=== PATIENT | male | born 1985 | race Caucasian/White ===

== ENCOUNTER 2021-08-18 09:15 | Inpatient (IN) | payer OTHER ==
--- NOTE | 2021-08-18 10:43 | ED ---
Psych HPI - General Chief Complaint: Psychiatric Symptoms Stated Complaint: Mental Health Evaluation Time Seen by Provider: 08/18/21 09:55 Source: patient, RN notes reviewed Mode of arrival: ambulatory Limitations: no limitations - History of Present Illness Initial Comments: This a 35-year-old male presents emergency Department chief complaint of needing psychiatric help. Patient states he has from [place] states that he does not have his psychiatric medications he states he's developed severe psychosis, suicidal ideation. States is very anxious, agitated he denies any homicidal ideation denies any current drug or alcohol abuse. Patient denies any physical complaints. - Related Data Home Medications Medication Instructions Recorded Confirmed No Known Home Medications 08/18/21 08/18/21 Allergies Allergy/AdvReac Type Severity Reaction Status Date / Time Beta-Blockers Allergy Anaphylaxis Verified 08/18/21 11:36 (Beta-Adrenergic Bloc MOST ANTIPSYCHOTICS AdvReac "STROKE" Uncoded 08/18/21 11:36 Review of Systems ROS Statement: Those systems with pertinent positive or pertinent negative responses have been documented in the HPI. ROS Other: All systems not noted in ROS Statement are negative. Past Medical History Past Medical History: No Reported History History of Any Multi-Drug Resistant Organisms: None Reported Past Surgical History: No Surgical Hx Reported Past Psychological History: Anxiety, Depression, PTSD Smoking Status: Current every day smoker Past Alcohol Use History: Daily Past Drug Use History: None Reported General Exam Limitations: no limitations General appearance: alert, in no apparent distress Head exam: Present: atraumatic, normocephalic, normal inspection Eye exam: Present: normal appearance, PERRL, EOMI. Absent: scleral icterus, conjunctival injection, periorbital swelling ENT exam: Present: normal exam, normal oropharynx, mucous membranes moist Neck exam: Present: normal inspection, full ROM. Absent: tenderness, meningismus, lymphadenopathy Respiratory exam: Present: normal lung sounds bilaterally. Absent: respiratory distress, wheezes, rales, rhonchi, stridor Cardiovascular Exam: Present: regular rate, normal rhythm, normal heart sounds. Absent: systolic murmur, diastolic murmur, rubs, gallop, clicks Neurological exam: Present: alert, oriented X3 Psychiatric exam: Present: anxious Skin exam: Present: warm, dry, intact, normal color. Absent: rash Course Vital Signs 08/18/21 09:48 Temperature 97.7 F Pulse Rate 91 Respiratory 18 Rate Blood Pressure 157/97 O2 Sat by Pulse 99 Oximetry Medical Decision Making - Medical Decision Making Patient will be admitted for psychiatric treatment. - Lab Data Lab Results 08/18/21 Range/Units 11:25 Urine Opiates Screen Not Detected (NotDetected) Ur Oxycodone Screen Not Detected (NotDetected) Urine Methadone Screen Not Detected (NotDetected) Ur Propoxyphene Screen Not Detected (NotDetected) Ur Barbiturates Screen Not Detected (NotDetected) U Tricyclic Antidepress Not Detected (NotDetected) Ur Phencyclidine Scrn Not Detected (NotDetected) Ur Amphetamines Screen Not Detected (NotDetected) U Methamphetamines Scrn Not Detected (NotDetected) U Benzodiazepines Scrn Detected H (NotDetected) Urine Cocaine Screen Not Detected (NotDetected) U Marijuana (THC) Screen Not Detected (NotDetected) Disposition Clinical Impression: Depression, Suicidal ideation Disposition: TRANSFER TO PSYCH HOSP/UNIT Condition: Stable Referrals: Nonstaff,Physician [Primary Care Provider] - 1-2 days
[2021-08-18 11:55] LABS: Amphetamine Screen,Urine Not Detected (NotDetected); Barbiturate Screen,Urine Not Detected (NotDetected); Benzodiazepines Screen,Urine Detected (NotDetected); Cocaine Screen,Urine Not Detected (NotDetected); Methadone Screen, Urine Not Detected (NotDetected); Opiate Screen,Urine Not Detected (NotDetected); Oxycodone Screen, Urine Not Detected (NotDetected); Phencyclidine Screen,Urine Not Detected (NotDetected); Tricyclic Antidepressant,Urine Not Detected (NotDetected); Urn Cannabinoid Scrn Not Detected (NotDetected)
[2021-08-18] MEDS ORDERED: LORazepam 1 MG TAB PO STA (13:17)
[2021-08-18] MEDS ORDERED: MAGNESIUM HYDROXIDE 2,400 MG/10 ML CUP PO PRN (17:17)
[2021-08-18] MEDS ORDERED: ACETAMINOPHEN TAB 325 MG TAB PO PRN (17:17)
[2021-08-18] MEDS ORDERED: MAG HYDROX/AL HYDROX/SIMETH 30 ML CUP PO PRN (17:17)
[2021-08-18] MEDS ORDERED: HALOPERIDOL LACTATE 5 MG/ML 1 ML VIAL IM PRN (17:19)
[2021-08-18] MEDS ORDERED: LORazepam 2 MG/ML INJ IM PRN (17:19)
[2021-08-18] MEDS ORDERED: haloperidoL 5 MG TAB PO PRN (17:19)
[2021-08-18] MEDS: LORazepam 1 MG TAB PO PRN (18:46)
[2021-08-18] MEDS ORDERED: traZODone HCL 50 MG TAB PO PRN (21:11)
--- NOTE | 2021-08-19 00:43 | P.PN ---
Progress Note - Text Progress Note Date: 08/19/21 patient sleeping and could not be evaluated at this time
[2021-08-19 07:47] LABS: ALT 38 U/L (4-49); AST 28 U/L (17-59); African American GFR (CKD) >90 (>60 ml/min/1.73 sqM); Albumin 3.5 g/dL (3.5-5.0); Alkaline Phosphatase 50 U/L (38-126); Anion Gap 6 mmol/L; Blood Urea Nitrogen 17 mg/dL (9-20); Calcium 9.3 mg/dL (8.4-10.2); Carbon Dioxide 27 mmol/L (22-30); Chloride 105 mmol/L (98-107); Glucose 96 mg/dL (74-99); Non-African American GFR(CKD) >90 (>60 ml/min/1.73 sqM); Sodium 138 mmol/L (137-145); Total Bilirubin 0.7 mg/dL (0.2-1.3); Total Protein 6.4 g/dL (6.3-8.2)
[2021-08-19 07:57] LABS: Basophils % (A) 1 %; Eosinophils # (A) 0.2 k/uL (0-0.7); Eosinophils % (A) 3 %; HCT 39.3 % (39.0-53.0); HGB 13.8 gm/dL (13.0-17.5); Lymphocytes # (A) 1.8 k/uL (1.0-4.8); Lymphocytes % (A) 36 %; MCH 34.8 pg (25.0-35.0); MCV 99.4 fL (80.0-100.0); Mean Platelet Volume 8.5; Monocytes # (A) 0.4 k/uL (0-1.0); Monocytes % (A) 7 %; Neutrophils # (A) 2.6 k/uL (1.3-7.7); Neutrophils % (A) 51 %; Platelet Count 233 k/uL (150-450); RBC 3.96 m/uL (4.30-5.90); RDW 13.2 % (11.5-15.5)
[2021-08-19] MEDS: LORazepam 1 MG TAB PO PRN ×3 (08:00→21:17)
[2021-08-19] MEDS: NICOTINE 14MG/24HR PATCH TRANSDERM SCH ×2 (08:36→15:14)
--- NOTE | 2021-08-19 11:59 | P.HP ---
Psychiatric H&P - . H&P Date: 08/19/21 History & Physical: Allergies Allergy/AdvReac Type Severity Reaction Status Date / Time Beta-Blockers Allergy Anaphylaxis Verified 08/18/21 11:36 (Beta-Adrenergic Bloc MOST ANTIPSYCHOTICS AdvReac "STROKE" Uncoded 08/18/21 11:36 Vital Signs Temp 97.7 F 08/18/21 18:09 Pulse 86 08/19/21 08:00 Resp 18 08/18/21 18:09 BP 131/77 08/19/21 08:00 Pulse Ox 99 08/18/21 18:09 Intake & Output 08/18/21 08/19/21 08/19/21 18:59 06:59 18:59 Weight 109.769 kg Laboratory Last Values WBC 5.0 k/uL (3.8-10.6) 08/19/21 06:43 RBC 3.96 m/uL (4.30-5.90) L 08/19/21 06:43 Hgb 13.8 gm/dL (13.0-17.5) 08/19/21 06:43 Hct 39.3 % (39.0-53.0) 08/19/21 06:43 MCV 99.4 fL (80.0-100.0) 08/19/21 06:43 MCH 34.8 pg (25.0-35.0) 08/19/21 06:43 MCHC 35.0 g/dL (31.0-37.0) 08/19/21 06:43 RDW 13.2 % (11.5-15.5) 08/19/21 06:43 Plt Count 233 k/uL (150-450) 08/19/21 06:43 MPV 8.5 08/19/21 06:43 Neutrophils % 51 % 08/19/21 06:43 Lymphocytes % 36 % 08/19/21 06:43 Monocytes % 7 % 08/19/21 06:43 Eosinophils % 3 % 08/19/21 06:43 Basophils % 1 % 08/19/21 06:43 Neutrophils # 2.6 k/uL (1.3-7.7) 08/19/21 06:43 Lymphocytes # 1.8 k/uL (1.0-4.8) 08/19/21 06:43 Monocytes # 0.4 k/uL (0-1.0) 08/19/21 06:43 Eosinophils # 0.2 k/uL (0-0.7) 08/19/21 06:43 Basophils # 0.0 k/uL (0-0.2) 08/19/21 06:43 Sodium 138 mmol/L (137-145) 08/19/21 06:43 Potassium 4.0 mmol/L (3.5-5.1) 08/19/21 06:43 Chloride 105 mmol/L (98-107) 08/19/21 06:43 Carbon Dioxide 27 mmol/L (22-30) 08/19/21 06:43 Anion Gap 6 mmol/L 08/19/21 06:43 BUN 17 mg/dL (9-20) 08/19/21 06:43 Creatinine 0.95 mg/dL (0.66-1.25) 08/19/21 06:43 Est GFR (CKD-EPI)AfAm >90 (>60 ml/min/1.73 sqM) 08/19/21 06:43 Est GFR (CKD-EPI)NonAf >90 (>60 ml/min/1.73 sqM) 08/19/21 06:43 Glucose 96 mg/dL (74-99) 08/19/21 06:43 Calcium 9.3 mg/dL (8.4-10.2) 08/19/21 06:43 Total Bilirubin 0.7 mg/dL (0.2-1.3) 08/19/21 06:43 AST 28 U/L (17-59) 08/19/21 06:43 ALT 38 U/L (4-49) 08/19/21 06:43 Alkaline Phosphatase 50 U/L (38-126) 08/19/21 06:43 Total Protein 6.4 g/dL (6.3-8.2) 08/19/21 06:43 Albumin 3.5 g/dL (3.5-5.0) 08/19/21 06:43 TSH 0.571 mIU/L (0.465-4.680) 08/19/21 06:43 Urine Opiates Screen Not Detected (NotDetected) 08/18/21 11:25 Ur Oxycodone Screen Not Detected (NotDetected) 08/18/21 11:25 Urine Methadone Screen Not Detected (NotDetected) 08/18/21 11:25 Ur Propoxyphene Screen Not Detected (NotDetected) 08/18/21 11:25 Ur Barbiturates Screen Not Detected (NotDetected) 08/18/21 11:25 U Tricyclic Antidepress Not Detected (NotDetected) 08/18/21 11:25 Ur Phencyclidine Scrn Not Detected (NotDetected) 08/18/21 11:25 Ur Amphetamines Screen Not Detected (NotDetected) 08/18/21 11:25 U Methamphetamines Scrn Not Detected (NotDetected) 08/18/21 11:25 U Benzodiazepines Scrn Detected (NotDetected) H 08/18/21 11:25 Urine Cocaine Screen Not Detected (NotDetected) 08/18/21 11:25 U Marijuana (THC) Screen Not Detected (NotDetected) 08/18/21 11:25 Coronavirus (PCR) Not Detected (Not Detectd) 08/18/21 12:58 08/19/21 11:52 IDENTIFYING DATA: Patient is a 35-year-old male coming from [place] who currently lives with his mother and has 1 adult and is currently . He is currently unemployed. HPI: Patient presented to the hospital yesterday with complaints of depression and anxiety and not being on medications. Patient's UDS is positive for benzodiazepines. Patient was admitted to the mental health floor for evaluation and treatment. Patient signed voluntary form. He claims that he came to [place] to live with his mother from [place]. He states that his medications got lost in his luggage on the plane and states that he has been off his medications for several months now. He states that about a month ago he was admitted to [facility] in [place] and was treated for depression and anxiety and discharged with prescriptions however states that he could not fill him due to not having [place] Medicaid active. He states that he would like to get back on his Cymbalta, Zyprexa trazodone and melatonin. He states that he has been dealing with anxiety depression and PTSD. He states that his sleep is fair however does have repeated nightmares and flashbacks. He claims that his appetite is fair. Patient denies any current suicidal or homicidal ideations intent or plan. At this time patient denies any auditory or visual hallucinations. Patient denies any flight of ideas racing thoughts and increased in goal directed behavior. Patient admits to using alcohol daily and states that he drinks excessively. He claims that he is having mild withdrawal symptoms including tremor at this time in his hands however does not have a history of DTs. PAST PSYCHIATRIC HISTORY: Patient states that he has a history of anxiety, PTSD and depression. Patient was previously on Cymbalta, Zyprexa, trazodone and melatonin patient was recently psychiatrically hospitalized a [facility] over a month ago. He states that he has been psychiatrically hospitalized several times in the past. Patient denies any psychiatric outpatient follow-up. He states that he overdosed on DayQuill 6 years ago during his divorce. PMH: DJD ALLERGIES: as per EMR CHEMICAL DEPENDENCY HISTORY: as per HPI FAMILY PSYCHIATRIC/SUBSTANCE USE HISTORY: States that his mother has depression and anxiety. SOCIAL HISTORY: Patient was born and raised in [place]. He states that he completed high school and attended 3 years of college. 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 He currently lives with his mother in a house has 1 adult and is currently unemployed. He is . He states that he went to assisted in the past for operating while intoxicated. MENTAL STATUS EXAM: General Appearance: Patient appears to be heavyset, stated age is alert, directable, and attempts to cooperate. Multiple tattoos, Patient appears to have poor hygiene and grooming. Behavior: Patient is seated without any agitated behavior. Speech: Patient's speech is fluent and nonpressured. Depue and monotone. Mood/Affect: Patient reports their mood is depressed and anxious, affect is congruent and constricted. Suicidality/Homicidality: Patient denies having any homicidal ideation intent or plan. Denies any suicidal ideations intent or plan Perceptions: Patient denies any visual hallucinations and denies any auditory hallucinations Though content/process: \\Depue, monotone. Poverty of content. Logical. Vague. Memory and concentration: AOX3, grossly intact for the purposes of this session. Can spell "WORLD" backwards Judgment and insight: poor STRENGTHS/WEAKNESSES: strength is that patient is resilient. Weakness is that patient has poor judgment and is impulsive INTELLECT: average IMPRESSIONS: Major depressive disorder, without psychotic features PTSD Alcohol use disorder, currently in withdrawal PLAN: -Patient is admitted under voluntary status to [facility] for stabilization of psychiatric symptoms and safety. Patient has signed adult voluntary form and medication consent and is placed in patient's chart. -Medications : Will start patient on Zyprexa 5 mg daily at bedtime for mood stabilization/insomnia, Cymbalta 30 mg daily for mood/anxiety/pain. Melatonin 5 mg daily at bedtime for sleep. Trazodone 50 mg daily at bedtime when necessary for insomnia. Started prazosin 1 mg daily at bedtime for nightmares. -Ativan and Haldol PRN for agitation/aggression -Started thiamine, MVM for etoh use -CIWA protocol with Ativan PRN for ETOH withdrawal -Patient was counselled on substance abuse and desired to cut back on use -Patient was informed of the risks, benefits and side effects of the medication and patient verbally consented to taking the medications. Patient signed med consent form and was placed in chart. -Internal Medicine consult to perform medical evaluation and physical. -NRT - nicotine patch -SW on board for discharge planning. Encourage patient to participate in groups to work on coping skills.
[2021-08-19] MEDS: MULTIVITAMINS, THERA 1 EACH TAB PO SCH (12:56)
[2021-08-19] MEDS: THIAMINE 100 MG TAB PO SCH (12:56)
[2021-08-19] MEDS: DULoxetine HCL 30 MG CAPSULE.DR PO SCH (12:56)
[2021-08-19] MEDS: FOLIC ACID 1 MG TAB PO SCH (12:56)
[2021-08-19 13:45] LABS: Chol/HDL Ratio 3.77; Cholesterol 177 mg/dL (0-200); LDL Cholesterol,Calculated 65.2 mg/dL (0.0-131.0)
[2021-08-19 14:40] LABS: Hemoglobin A1C 4.7 % (4.0-6.0)
[2021-08-19] MEDS ORDERED: flUPHENAZine 2.5 MG/ML (MDV) 10 ML VIAL IM PRN (14:48)
[2021-08-19] MEDS: OLANZapine 5 MG TAB PO SCH (20:38)
[2021-08-19] MEDS: PRAZOSIN 1 MG CAP PO SCH (20:38)
[2021-08-19] MEDS: MELATONIN 5 MG TABLET PO SCH (20:38)
[2021-08-20] MEDS: NICOTINE 14MG/24HR PATCH TRANSDERM SCH ×3 (08:00→16:37)
[2021-08-20] MEDS: MULTIVITAMINS, THERA 1 EACH TAB PO SCH (08:00)
[2021-08-20] MEDS: DULoxetine HCL 30 MG CAPSULE.DR PO SCH ×2 (08:00→20:39)
[2021-08-20] MEDS: THIAMINE 100 MG TAB PO SCH (08:00)
[2021-08-20] MEDS: FOLIC ACID 1 MG TAB PO SCH (08:00)
[2021-08-20] MEDS: LORazepam 1 MG TAB PO PRN ×3 (08:00→21:48)
--- NOTE | 2021-08-20 11:53 | P.PN ---
Progress Note - Text Progress Note Date: 08/20/21 Interval History: Patient was seen playing cards today and activities group and was directable and agreeable to speak with blurb writer in the office. Patient appears to be more appropriate with blurb writer and less irritable today. He states that his mood and anxiety began gradually improving. He states that he is worried about his anxiety when he leaves the hospital and was asking about other options. He is agreeable to have his Cymbalta increased to 30 mg twice a day. He claims that he was able to sleep fairly last night and did not have any nightmares. He states that he is most likely willing to go to a rehab however is waiting on an intake date from [facility] at this time. He states that he is going to groups and attempting to participate as best as he can. At this time patient denies any suicidal or homical ideations, intent or plan. Patient denies any auditory, visual hallucinations and denies any paranoia or delusions. Patient denies any side effects from the medications and has been compliant with meds. Mental Status Exam: General Appearance: Patient appears to be heavyset, stated age is alert, more directable, and attempts to cooperate. Multiple tattoos, Patient appears to have improving hygiene and grooming. Behavior: Patient is seated without any agitated behavior. More cooperative today Speech: Patient's speech is fluent and nonpressured. [place] Mood/Affect: Patient reports their mood is improving mildly, affect is congruent and constricted. Suicidality/Homicidality: Patient denies having any homicidal ideation intent or plan. Denies any suicidal ideations intent or plan Perceptions: Patient denies any visual hallucinations and denies any auditory hallucinations Though content/process: monotone. Poverty of content. Logical. Memory and concentration: AOX3, grossly intact for the purposes of this session. Judgment and insight: poor, improving mildly Assessment Major depressive disorder, without psychotic features PTSD Alcohol use disorder, currently in withdrawal Plan: -Patient continues to meet criteria for inpatient psychiatric admission for symptom stabilization and safety. Patient has signed adult voluntary form and medication consent and was placed in patient's chart. -Medications: Zyprexa 5 mg daily at bedtime for mood stabilization/insomnia, Cymbalta increased to 30 mg twice a day for mood/anxiety/pain. Melatonin 5 mg daily at bedtime for sleep. Trazodone 50 mg daily at bedtime when necessary for insomnia. Continue with prazosin 1 mg daily at bedtime for nightmares. -thiamine, MVM for etoh use -CIWA protocol with Ativan PRN for ETOH withdrawal -When necessary Ativan and Haldol for agitation/aggression. -NRT - nicotine patch -SW on board for discharge planning. Encouraged the patient to participate in milieu. Currently awaiting patient's intake date at [facility] and will be discharged record [facility] for rehab.
[2021-08-20] MEDS: PRAZOSIN 1 MG CAP PO SCH (20:38)
[2021-08-20] MEDS: MELATONIN 5 MG TABLET PO SCH (20:39)
[2021-08-20] MEDS: OLANZapine 5 MG TAB PO SCH (20:39)
[2021-08-21 07:23] VITALS: PULSE 77; RESP 16; TEMP 97.3
[2021-08-21] MEDS: MULTIVITAMINS, THERA 1 EACH TAB PO SCH (08:07)
[2021-08-21] MEDS: FOLIC ACID 1 MG TAB PO SCH (08:07)
[2021-08-21] MEDS: THIAMINE 100 MG TAB PO SCH (08:07)
[2021-08-21] MEDS: DULoxetine HCL 30 MG CAPSULE.DR PO SCH ×2 (08:07→20:50)
[2021-08-21] MEDS: LORazepam 1 MG TAB PO PRN ×3 (08:08→22:00)
[2021-08-21] MEDS: NICOTINE 14MG/24HR PATCH TRANSDERM SCH (08:10)
--- NOTE | 2021-08-21 11:28 | P.PN ---
Progress Note - Text Progress Note Date: 08/21/21 Interval History: Patient was seen wandering the hallway today was directable and agreeable to s peak with consumer loan underwriter in the office. Patient appears to be more appropriate with consumer loan underwriter and less irritable today. He states that he has been gradually improving in terms of his mood and anxiety. He continues to perseverate on his anxiety and states that Klonopin or Ativan or the only thing that helped him for it. He asked several questions about his anxiety and other medication options and after reviewing other options like Vistaril and BuSpar patient states that he would want to stay on the Cymbalta and have that increased over time. Claims that he has been going to groups and tending to participate. He claims that he was able to sleep fairly last night and did not have any nightmares. He states that he is most likely willing to go to a rehab however is waiting on an intake date from [facility] at this time. At this time patient denies any suicidal or homical ideations, intent or plan. Patient denies any auditory, visual hallucinations and denies any paranoia or delusions. Patient denies any side effects from the medications and has been compliant with meds. Mental Status Exam: General Appearance: Patient appears to be heavyset, stated age is alert, more directable, and attempts to cooperate. Multiple tattoos, Patient appears to have improving hygiene and grooming. Behavior: Patient is seated without any agitated behavior. More cooperative today Speech: Patient's speech is fluent and nonpressured. [place] Mood/Affect: Patient reports their mood is improving mildly, affect is congruent and constricted. Suicidality/Homicidality: Patient denies having any homicidal ideation intent or plan. Denies any suicidal ideations intent or plan Perceptions: Patient denies any visual hallucinations and denies any auditory hallucinations Though content/process: monotone. Poverty of content. Logical. Memory and concentration: AOX3, grossly intact for the purposes of this session. Judgment and insight: poor, improving mildly Assessment Major depressive disorder, without psychotic features PTSD Alcohol use disorder, currently in withdrawal Plan: -Patient continues to meet criteria for inpatient psychiatric admission for symptom stabilization and safety. Patient has signed adult voluntary form and medication consent and was placed in patient's chart. -Medications: Zyprexa 5 mg daily at bedtime for mood stabilization/insomnia, Cymbalta 30 mg twice a day for mood/anxiety/pain. Melatonin 5 mg daily at bedtime for sleep. Trazodone 50 mg daily at bedtime when necessary for insomnia. Continue with prazosin 1 mg daily at bedtime for nightmares. -thiamine, MVM for etoh use -CIWA protocol with Ativan PRN for ETOH withdrawal -When necessary Ativan and Haldol for agitation/aggression. -NRT - nicotine patch -SW on board for discharge planning. Encouraged the patient to participate in milieu. Currently awaiting patient's intake date at [facility]. Patient can be discharged tomorrow either to if he can get an intake date vs. intermediate or with a friend if his intake date is further out into next week.
[2021-08-21] MEDS: OLANZapine 5 MG TAB PO SCH (20:50)
[2021-08-21] MEDS: MELATONIN 5 MG TABLET PO SCH (20:50)
[2021-08-21] MEDS: PRAZOSIN 1 MG CAP PO SCH (20:50)
[2021-08-21 20:56] VITALS: BP 149/82
[2021-08-22] MEDS: NICOTINE 14MG/24HR PATCH TRANSDERM SCH (07:59)
[2021-08-22] MEDS: DULoxetine HCL 30 MG CAPSULE.DR PO SCH (07:59)
[2021-08-22] MEDS: THIAMINE 100 MG TAB PO SCH (07:59)
[2021-08-22] MEDS: FOLIC ACID 1 MG TAB PO SCH (07:59)
[2021-08-22] MEDS: MULTIVITAMINS, THERA 1 EACH TAB PO SCH (07:59)
[2021-08-22] MEDS: LORazepam 1 MG TAB PO PRN (08:07)
--- NOTE | 2021-08-22 12:10 | DS ---
DISCHARGE SUMMARY DATE OF SERVICE: 08/22/2021. ADMISSION AND DISCHARGE DIAGNOSES: 1. Major depressive disorder, without psychotic features. 2. PTSD. 3. Alcohol use disorder and acute alcohol withdrawal. HISTORY OF PRESENTING ILLNESS: The patient is a 35-year-old male, he presented to the hospital with complaints of anxiety and depression. He had been off medication for several months. He had an admission about one month ago to [facility] for similar circumstances. He said he was not able to fill his prescriptions on discharge and had been on Cymbalta, Zyprexa and Trazodone. He has had a past diagnosis of PTSD in addition to depression. He reported nightmares and flashbacks. He was not reporting any thoughts of harm. He had been drinking alcohol daily. Urine drug screen was positive for benzodiazepine. He was admitted for further evaluation. MENTAL STATUS EXAM: He had poor hygiene and grooming. Behavior was appropriate. Speech was fluent and non- pressured. His voice was monotone. He presented with anxiety and depression. He denied thoughts of harm. There was no indication of thought disorder. He was oriented and alert. COURSE OF HOSPITALIZATION: Patient was admitted for comprehensive medical, psychiatric and psychosocial evaluation. We engaged the patient in individual and group therapeutic activities. He was started on Cymbalta 30 mg a day for depression. In addition, he was started on Zyprexa 5 mg a day to augment his antidepressant. In addition, he was given trazodone 50 mg at bedtime. He was started on Prazocin 1 mg at bedtime for trauma related nightmares. Early on in his hospitalization he was doing fair. He noted early on that things were improving for him. He had made a contact for an intake at [facility]. He attended groups as his hospitalization progressed, he continued to show progress with improving mood and less anxiety. He was not showing significant signs of withdrawal. Vital signs remained stable. His highest CIWA scores were 5 on 1 score and the rest were lower. On the day of discharge, his scores were 0 and 4. He was able to engage in discharge planning. CONDITION AT DISCHARGE: Patient was stable. His mood was improved. Anxiety was less. He tolerated his psychotropic medications. RECOMMENDATIONS AND FOLLOWUP: Discharge medications Cymbalta 30 mg twice a day, Zyprexa 5 mg a day and trazodone 50 mg p.r.n. In addition, he is on Prazocin 1 mg at bedtime. He has an intake at [facility] on Wednesday. [facility] at a [facility]. He states that he is motivated to follow through with the intake. SERGIO / CARLINEN: [id number] / [id number]
== END 2021-08-22 13:55 | disposition home or self-care (01) | DRG 881 ==
LOC: EC 09:15 → 3MHU 17:12
PROVIDERS: ADMIT Psychiatry & Neurology Psychiatry; ATTEND Psychiatry & Neurology Psychiatry
DX: F32.9 Major depressive disorder, single episode, unspecified (principal); R45.851 Suicidal ideations; F43.10 Post-traumatic stress disorder, unspecified; F10.10 Alcohol abuse, uncomplicated; F17.200 Nicotine dependence, unspecified, uncomplicated; Z56.0 Unemployment, unspecified; Z81.8 Family history of other mental and behavioral disorders; Z20.822 Contact with and (suspected) exposure to COVID-19
CPT/HCPCS: 80053; 80061; 80306; 82075; 83036; 84443; 85025; 87635; 99285

== ENCOUNTER → 2021-09-05 | Outpatient (CLI) | payer SELFPAY ==
[2021-09-06 04:58] LABS: Albumin 4.4 g/dL (3.8-4.9); Albumin/Globulin Ratio 1.8 (1.60-3.17); Anion Gap 12.3 mmol/L (4.00-12.00); BUN/Creat Ratio 18.22 Ratio (12.00-20.00); Blood Urea Nitrogen 16.4 mg/dL (9.0-27.0); Calcium 9.6 mg/dL (8.7-10.3); Carbon Dioxide 25.6 mmol/L (21.6-31.8); Globulin 2.4 g/dL (1.6-3.3); Non-African American GFR(CKD) 108.7 (60.0-200.0); Potassium 4.2 mmol/L (3.5-5.5); Total Bilirubin 0.3 mg/dL (0.30-1.20); Total Protein 6.8 g/dL (6.2-8.2)
== END | disposition home or self-care (01) ==
LOC: LABWHC1 14:34
PROVIDERS: ATTEND Psychologist Clinical
DX: F10.20 Alcohol dependence, uncomplicated (principal)
CPT/HCPCS: 36415; 80053

== ENCOUNTER → 2022-06-04 | Outpatient (CLI) | payer OTHER ==
[2022-06-04 16:13] LABS: Basophils # (A) 0.02 X 10*3/uL (0.00-0.10); Basophils % (A) 0.3 %; Eosinophils # (A) 0.17 X 10*3/uL (0.04-0.35); Eosinophils % (A) 2.6 %; HGB 14.7 g/dL (13.0-17.0); Immature Grans, Automated 0.3 %; Lymphocytes # (A) 1.64 X 10*3/uL (0.90-5.00); Lymphocytes % (A) 24.9 %; MCH 33.1 pg (27.0-32.0); MCHC 34.2 g/dL (32.0-37.0); MCV 96.8 fL (80.0-97.0); Mean Platelet Volume 11.4 fL (9.5-12.2); Monocytes # (A) 0.72 X 10*3/uL (0.20-1.00); Monocytes % (A) 10.9 %; NRBC Per 100 WBC 0 /100 WBCS (0.0-0.0); Neutrophils # (A) 4.01 X 10*3/uL (1.80-7.70); Platelet Count 287 X 10*3/uL (140-440); RBC 4.44 X 10*6/uL (4.40-5.60); RDW 12.3 % (11.5-14.5); WBC 6.58 X 10*3/uL (4.50-10.00)
[2022-06-04 17:54] LABS: ALT 22 U/L (10-49); AST 16 U/L (14-35); African American GFR (CKD) 116.6 (60.0-200.0); Albumin 4.5 g/dL (3.8-4.9); Albumin/Globulin Ratio 1.91 (1.60-3.17); Alkaline Phosphatase 67 U/L (41-126); BUN/Creat Ratio 12.79 Ratio (12.00-20.00); Blood Urea Nitrogen 12.2 mg/dL (9.0-27.0); Calcium 9.4 mg/dL (8.7-10.3); Carbon Dioxide 23.6 mmol/L (20.0-27.5); Chloride 105 mmol/L (96-109); Chol/HDL Ratio 6.67 Ratio; Globulin 2.4 g/dL (1.6-3.3); Glucose 109 mg/dL (70-110); LDL Cholesterol,Calculated 88.9 mg/dL (0.0-131.0); Non-African American GFR(CKD) 100.6 (60.0-200.0); Potassium 4.3 mmol/L (3.5-5.5); Sodium 141 mmol/L (135-145); Total Protein 6.9 g/dL (6.2-8.2)
[2022-06-04 23:22] LABS: Urine Alcohol Negative (Negative); Urine Barbiturate Negative (Negative); Urine Cocaine Negative (Negative); Urine Methadone Negative (Negative); Urine Opiates Negative (Negative); Urine Phencyclidine Negative (Negative)
== END | disposition home or self-care (01) ==
LOC: LABWHC1 10:07
PROVIDERS: ATTEND Psychiatry & Neurology Child & Adolescent Psychiatry
DX: Z00.00 Encounter for general adult medical examination without abnormal findings (principal)
CPT/HCPCS: 36415; 80053; 80061; 80165; 80306; 83036; 84439; 84443; 85025